=== PATIENT | male | born 1955 | race Caucasian/White ===

== ENCOUNTER 2023-06-30 14:53 | Outpatient (AMB) | payer OTHER, SELFPAY ==
--- NOTE | 2023-06-30 15:04 | A.OFFVIS_ITS ---
Vital Signs 06/30/23 15:05 Height 6 ft Weight 193 lb 8 oz BMI 26.2 BP 147/88 H Blood Pressure Location Lt brachial Position Sitting Respiration 18 Pulse 83 Pulse Source Pulse Oximeter Pulse Oximetry (%) 97 Oxygen Delivery Method Room Air Intake Visit Reasons: Back Pain Allergies amoxicillin Allergy (Intermediate, Verified 06/30/23 14:58) Rash HPI Comments Details: Ramón is a very pleasant 68-year-old male who presented to the office today for evaluation and management of his chronic lower back pain. Patient reports his pain started in 2018 after he was lifting his bicycle overhead. He felt a twinge of pain in his lower back which became significantly worse with radiation down the left leg. At that time he had shooting, electrical pain down the left leg to the foot with numbness. He reports numbness to the great toe and partial left foot since this injury. Or last 1 month he has noted some tingling, burning sensation to the right foot as well. He is concerned that the degenerative disease in his back is worsening. Most recent MRI was done in 2018, he has seen his primary care doctor and there is a plan for repeat MRI of his spine and 1 week. He has tried physical therapy in the past, states that it made it worse. He does home exercise program without resolution of his symptoms. He is very active, he has been doing less running and bike riding out of concern that all worsen his pain. Has not attempted minimal ablation by chiropractor, acupuncture, massage and has no previous attempts at injections. Denies history of surgery, in 2018 he was evaluated by Neurosurgery but did not require surgical intervention. Patient is currently taking Tylenol and very low-dose nonsteroidal anti- inflammatory due to kidney disease. PCP recently prescribed muscle relaxers and tramadol for severe pain, he has not needed to use these. Patient endorses midline lower back pain with radiation down the leg. Pain is worse with sitting and when changing from sit to stand position. He has had vascular testing recently which all came back ?normal ? In terms of muscle damage condition is described as dull, sore, hurting, aching, heavy, tingling, stinging. Pain is negatively impacting patient's enjoyment of life, general activities, work and sleep. Denies implantable devices, pacemaker, defibrillator. Denies current use of anticoagulants. [facility] Medical History (Updated 06/30/23 @ 15:44 by Kortney Pavon, DIRECTOR PRESALES, SALESPERSON FLOOR COVERINGS) Prostatic hypertrophy HTN (hypertension) Hx MRSA infection Colonic polyp CKD (chronic kidney disease) Review of Systems Const All systems reviewed & are unremarkable except as noted in HPI and below Physical Exam Vital Signs: Last Vital Signs Pulse 83 06/30/23 15:05 Resp 18 06/30/23 15:05 BP 147/88 H 06/30/23 15:05 Pulse Ox 97 06/30/23 15:05 Oxygen Delivery Method Room Air 06/30/23 15:05 BMI result Body Mass Index 26.2 General: awake, alert, oriented. Answers questions appropriately. Fully engaged in examination. Skin: warm, dry, intact HEENT: Normocephalic. Hearing intact. Cardiac: External chest normal in appearance. Respiratory: No cough, audible wheezing or stridor. Abdomen: without gross distension. MS: No obvious swelling or deformities. Able to stand on bilateral tiptoes and bilateral heels.? Able to transition from sit to stand unassisted. Ambulates with bilaterally normal heel strike and toe off Decreased lumbar range of motion Tenderness midline lumbar for right lumbar paraspinal muscle SLR with dorsiflexion positive on the right [id number] negative bilaterally SI compression and distraction negative bilaterally Facet loading positive bilaterally Neurological: Oriented to person, place, time and situation. Thought process intact. No gait abnormalities appreciated. Psychiatric: Appropriate mood and affect. Good judgment and insight. Assessment & Plan Assessment & Plan (1) Lumbar spondylosis: Code(s): M47.816 - Spondylosis without myelopathy or radiculopathy, lumbar region Category: Medical (2) Lumbar radiculopathy: Code(s): M54.16 - Radiculopathy, lumbar region Category: Medical (3) Neuropathy: Comment: bilateral hands and feet Code(s): G62.9 - Polyneuropathy, unspecified Category: Medical Plan Ramón is a very pleasant 68-year-old male who presented to the office today for evaluation management of his chronic lower back pain. EMG ordered for evaluation of his bilateral hand paresthesia and bilateral pedal neuropathy. He has MRI of the spine ordered from PCP, scheduled in 1 week. Continue with Tylenol as needed. Patient has cyclobenzaprine and tramadol as needed for severe pain. Patient will follow-up in the office after EMG/MRI to review results. We will further discuss treatment plan at this time. All questions and concerns were answered, patient present the plan. Orders: Orders NE electromyogram (EMG) Today G62.9 - Polyneuropathy, unspecified, M54.16 - Radiculopathy, lumbar region Coding Level of Care Code New Pt Level 4 (31374) Diagnoses Lumbar spondylosis M47.816 Lumbar radiculopathy M54.16 Neuropathy G62.9
[2023-06-30 15:05] VITALS: BP 147/88; PULSE 83; RESP 18; O2SAT 97; BMI 26.2
== END 2023-06-30 15:41 | disposition home or self-care (01) ==
PROVIDERS: PCP Physician Assistant Medical; Visit Provider Registered Nurse Emergency
DX: M47.816 Spondylosis without myelopathy or radiculopathy, lumbar region (principal); M54.16 Radiculopathy, lumbar region; G62.9 Polyneuropathy, unspecified
CPT/HCPCS: 99204

== ENCOUNTER → 2023-06-30 14:53 | Outpatient (BNVA) | payer OTHER, SELFPAY | PROVIDERS: PCP Physician Assistant Medical; Visit Provider Registered Nurse Emergency ==

== ENCOUNTER 2023-08-02 13:54 | Outpatient (REF) | payer OTHER, SELFPAY ==
--- NOTE | 2023-08-02 13:59 | EMG_ITS ---
Chief complaint: History of lumbar disc, with ongoing left foot numbness, worsening recently. Separate issue of on/off bilateral hand numbness. Reason for referral: Evaluate for Carpal Tunnel Syndrome, lumbar radiculopathy, neuropathy Referred by: Kortney Pavon NP Procedure done: Bilateral upper and lower extremities NCS/EMG Precautions and/or limitations: None The limb temperature was monitored continuously and remained between 32-36 degrees C during the performance of the NCS. Nerve Conduction Studies Anti Sensory Summary Table ?Stim Site NR Onset (ms) Norm Onset (ms) Peak (ms) Norm Peak (ms) O-P Amp (?V) Norm O-P Amp Site1 Site2 Delta-0 (ms) Dist (cm) Shon (m/s) Norm Shon (m/s) Left Median Anti Sensory (2nd Digit) Wrist ? 3.0 3.8 <3.6 12.6 >10 Wrist 2nd Digit 3.0 14.0 47 Right Median Anti Sensory (2nd Digit) Wrist ? 3.1 3.8 <3.6 8.7 >10 Wrist 2nd Digit 3.1 14.0 45 Right Radial Anti Sensory (Thumb) Forearm ? 1.8 2.3 <3.1 15.6 Forearm Thumb 1.8 0.0 Left Sural Anti Sensory (Lat Mall) Calf ? 1.2 3.3 <4.0 10.2 >5.0 Calf Lat Mall 1.2 14.0 117 Right Sural Anti Sensory (Lat Mall) Calf ? 2.5 3.2 <4.0 7.0 >5.0 Calf Lat Mall 2.5 14.0 56 Left Ulnar Anti Sensory (5th Digit) Wrist ? 0.9 3.2 <3.7 17.4 >15.0 Wrist 5th Digit 0.9 14.0 156 Right Ulnar Anti Sensory (5th Digit) Wrist ? 2.4 3.3 <3.7 12.9 >15.0 Wrist 5th Digit 2.4 14.0 58 Motor Summary Table ?Stim Site NR Onset (ms) Norm Onset (ms) O-P Amp (mV) Norm O-P Amp iAmp (mV) Amp (1st) (%) Site1 Site2 Delta-0 (ms) Dist (cm) Shon (m/s) Norm Shon (m/s) Left Median Motor (Abd Poll Brev) Wrist ? 4.2 <3.9 8.1 >4.5 9.6 100.0 Elbow Wrist 4.8 23.0 48 >45 Elbow ? 9.0 8.1 9.5 100.0 Right Median Motor (Abd Poll Brev) Wrist ? 4.2 <3.9 7.9 >4.5 9.2 100.0 Elbow Wrist 5.1 24.5 48 >45 Elbow ? 9.3 7.0 8.1 88.6 Left Peroneal Motor (Ext Dig Brev) Ankle ? 3.8 <4.0 4.6 >2.5 5.5 100.0 Ankle Ext Dig Brev 3.8 0.0 B Fib ? 12.5 3.7 4.4 80.4 B Fib Ankle 8.7 36.0 41 >40 Poplt ? 13.4 3.6 4.2 78.3 Poplt B Fib 0.9 5.0 56 >40 Right Peroneal Motor (Ext Dig Brev) Ankle ? 4.0 <4.0 3.6 >2.5 3.8 100.0 Ankle Ext Dig Brev 4.0 0.0 B Fib ? 12.0 3.1 3.3 86.1 B Fib Ankle 8.0 35.5 44 >40 Poplt ? 13.4 3.0 3.1 83.3 Poplt B Fib 1.4 6.5 46 >40 Left Tibial Motor (Abd Keen Brev) Ankle ? 3.5 <5 6.2 >2.5 7.5 100.0 Ankle Abd Keen Brev 3.5 0.0 Knee ? 14.5 2.8 3.2 45.2 Knee Ankle 11.0 46.0 42 >40 Right Tibial Motor (Abd Keen Brev) Ankle ? 3.3 <5 6.2 >2.5 8.4 100.0 Ankle Abd Keen Brev 3.3 0.0 Knee ? 13.6 2.8 3.7 45.2 Knee Ankle 10.3 45.0 44 >40 Left Ulnar Motor (Abd Dig Minimi) Wrist ? 2.5 <3.0 7.1 >5 7.9 100.0 B Elbow Wrist 3.8 24.0 63 >45 B Elbow ? 6.3 7.3 8.1 102.8 A Elbow B Elbow 1.7 10.0 59 >45 A Elbow ? 8.0 7.2 8.1 101.4 Right Ulnar Motor (Abd Dig Minimi) Wrist ? 2.8 <3.0 8.3 >5 10.0 100.0 B Elbow Wrist 4.2 23.0 55 >45 B Elbow ? 7.0 7.2 9.3 86.7 A Elbow B Elbow 1.1 10.0 91 >45 A Elbow ? 8.1 7.0 9.2 84.3 EMG ?Side Muscle Nerve Root Ins Act Fibs Psw Amp Dur Poly Recrt Int Pat Comment Right 1stDorInt Ulnar C8-T1 Nml Nml Nml Nml Nml 0 Nml Complete Right FlexCarRad Median C6-7 Nml Nml Nml Nml Nml 0 Nml Complete Right Biceps Musculocut C5-6 Nml Nml Nml Nml Nml 0 Nml Complete Right Triceps Radial C6-7-8 Nml Nml Nml Nml Nml 0 Nml Complete Right Deltoid Axillary C5-6 Nml Nml Nml Nml Nml 0 Nml Complete Left 1stDorInt Ulnar C8-T1 Nml Nml Nml Nml Nml 0 Nml Complete Left FlexCarRad Median C6-7 Nml Nml Nml Nml Nml 0 Nml Complete Left Biceps Musculocut C5-6 Nml Nml Nml Nml Nml 0 Nml Complete Left Triceps Radial C6-7-8 Nml Nml Nml Nml Nml 0 Nml Complete Left Deltoid Axillary C5-6 Nml Nml Nml Nml Nml 0 Nml Complete Right AbdHallucis MedPlantar S1-2 Nml Nml Nml Nml Nml 0 Nml Complete Right AntTibialis Dp Br Peron L4-5 Nml Nml Nml Nml Nml 0 Nml Complete Right PostTibialis Tibial L5, S1 Nml Nml Nml Nml Nml 0 Nml Complete Right MedGastroc Tibial S1-2 Nml Nml Nml Nml Nml 0 Nml Complete Right VastusMed Femoral L2-4 Nml Nml Nml Nml Nml 0 Nml Complete Left AbdHallucis MedPlantar S1-2 Nml Nml Nml Nml Nml 0 Nml Complete Left AntTibialis Dp Br Peron L4-5 Nml Nml Nml Nml Nml 0 Nml Complete Left PostTibialis Tibial L5, S1 Nml Nml Nml Nml Nml 0 Nml Complete Left MedGastroc Tibial S1-2 Nml Nml Nml Incr Incr 0 Nml Complete Left VastusMed Femoral L2-4 Nml Nml Nml Nml Nml 0 Nml Complete Paraspinal EMG ?Side Muscle Nerve Root Ins Act Fibs Psw Comment Right Lumbar Upper Rami Nml Nml Nml Right Lumbar Mid Rami Nml Nml Nml Right Lumbar Lower Rami Nml Nml Nml Left Lumbar Upper Rami Nml Nml Nml Left Lumbar Mid Rami Nml Nml Nml Left Lumbar Lower Rami Nml Nml Nml FINDINGS: Bilateral median motor nerves showed prolonged distal latency, normal amplitude and normal conduction velocity. Bilateral median sensory nerves showed prolonged peak latency. All other nerves tested were within normal. Concentric needle EMG was performed in selected muscles of the bilateral upper and lower extremities, lumbar paraspinals. Study revealed Signs of electric abnormalities as shown in the table below. Left mg showed increased duration and amplitude. IMPRESSION: 1. This is an abnormal study. 2. There is electrodiagnostic evidence for chronic left L5-S1 radiculopathy 3. There is electrodiagnostic evidence for bilateral moderate-severe median neuropathy at the wrist, consistent with Carpal Tunnel Syndrome. 4. There is no electrodiagnostic evidence for ulnar neuropathy, brachial plexopathy, peroneal neuropathy, tibial neuropathy. lumbosacral plexopathy, or peripheral neuropathy. Thank you for your kind referral. Florence Grove MD, MIKAELA Board Certified, [place] [employer] and [employer] (ABPMR) Board Certified, [place] Board [employer] Electrodiagnostic Medicine (ABEM) [place] [id number] [facility] [place] [facility]
== END 2023-08-02 13:55 | disposition home or self-care (01) ==
LOC: HO.NEURO 13:54
PROVIDERS: Visit Provider Physical Medicine & Rehabilitation
DX: G62.9 Polyneuropathy, unspecified (principal); M54.16 Radiculopathy, lumbar region
CPT/HCPCS: 95886; 95913

== ENCOUNTER → 2023-08-02 13:59 | Outpatient (BNV) | payer OTHER, SELFPAY | PROVIDERS: Visit Provider Physical Medicine & Rehabilitation | DX: G56.03 Carpal tunnel syndrome, bilateral upper limbs (principal); M54.16 Radiculopathy, lumbar region | CPT/HCPCS: 95886; 95913 ==